=== PATIENT | female | born 1960 | race Caucasian/White ===

== ENCOUNTER 2020-12-12 07:40 | Observation (INO) ==
--- NOTE | 2020-12-10 08:55 | Anesthesiology Consultation ---
Date of Service December 10, 2020 Assessment & Plan (1) Encounter for pre-operative examination: COVID screening: Per assessment on 12/09: Travel screen negative, no known COVID- 19 positive contacts or current COVID-19 related symptoms. Patient vaccinated. Preop COVID test 12/09/20 was negative ([place]). Chart Review Chart Review: Acceptable Risk for Surgery and Patient NOT seen in Pre Admission Testing History Surgery Operation Date: 12/12/20 11:10 Proposed Procedures p Right Total Knee Arthroplasty - Guzman Chris DO Height/Weight Height: 5 ft 8 in Weight: 112.491 kg Allergies Allergy/AdvReac Type Severity Reaction Status Date / Time levofloxacin [From Levaquin] Allergy Severe Dyspnea Verified 12/10/20 08:55 sulfamethoxazole AdvReac Mild Headache Verified 12/10/20 08:55 [From Bactrim] trimethoprim [From Bactrim] AdvReac Mild Headache Verified 12/10/20 08:55 Medications Home Medications Medication Instructions Recorded Confirmed Last Taken lisinopril 10 mg tablet 10 mg PO QAM 12/09/20 12/09/20 Unknown Past Medical History Medical History Hx of renal calculi Hypertension Osteoarthritis Past Family History Family History Other Diabetes Heart disease Past Surgical History Surgical History H/O arthroscopic knee surgery right H/O cataract removal with insertion of prosthetic lens R/L H/O hernia repair left inguinal H/O partial nephrectomy partial of left kidney (r/t "stuck" kidney stone/sepsis) several years ago, no residual renal issues per pt H/O: hysterectomy History of History of cholecystectomy Hx of colonoscopy Social History Smoking Status: Never smoker Do You Dip or Chew Tobacco: No Hx Alcohol Use: No Hx Substance Use: No substance use type: does not use Lab Results Anesthesia Preop Results Results Anesthesia Widget: WBC 8.19 K/uL (4.8-10.8) 12/09/20 Hgb 15.0 g/dL (12.0-16.0) 12/09/20 Hct 43.7 % (37-47) 12/09/20 Plt 388 K/uL (130-400) 12/09/20 Na 139 mmol/L (136-145) 12/09/20 K 3.9 mmol/L (3.5-5.1) 12/09/20 Cl 108 mmol/L (98-107) H 12/09/20 CO2 28 mmol/L (21-32) 12/09/20 BUN 19 mg/dl (7-18) H 12/09/20 Creat 0.57 mg/dl (0.6-1.2) L 12/09/20 Glucose Level 83 mg/dl (70-99) 12/09/20 PT 9.5 Seconds (9.0-12.0) 12/09/20 PTT 25.2 Seconds (21.0-31.0) 12/09/20 INR 0.9 (0.9-1.1) 12/09/20 Blood Type A Positive 12/09/20 Antibody Screen NEGATIVE 12/09/20 Testing Electrocardiogram Date: 12/09/20 Findings: + NSR @ (81) Chest X-Ray Date: 12/09/20 Findings: + NAD
--- NOTE | 2020-12-11 16:07 | History & Physical Report ---
Date of Service December 11, 2020 Assessment & Plan (1) Osteoarthritis of right knee: We will proceed with a right total knee arthroplasty. Postoperatively she will be started on aspirin for DVT prophylaxis and kept overnight in the hospital for postoperative medical management. She plans to use home health upon discharge. History of Present Illness Chief Complaint: Osteoarthritis of the right knee. Primary Care Provider: NO PCP Angle is a pleasant 60-year-old female who has been dealing with chronic worsening right knee pain. X-rays and clinical examination have been diagnostic for advanced osteoarthritis of the right knee. After failing conservative treatment, she has elected to proceed with a right total knee arthroplasty.. Allergies Allergy/AdvReac Type Severity Reaction Status Date / Time levofloxacin [From Levaquin] Allergy Severe Dyspnea Verified 12/10/20 08:55 sulfamethoxazole AdvReac Mild Headache Verified 12/10/20 08:55 [From Bactrim] trimethoprim [From Bactrim] AdvReac Mild Headache Verified 12/10/20 08:55 Home Medications Medication Instructions Recorded Confirmed Type lisinopril 10 mg tablet 10 mg PO QAM 12/09/20 12/09/20 History Past Med/Surg History Medical History Hx of renal calculi Hypertension Osteoarthritis Surgical History H/O arthroscopic knee surgery right H/O cataract removal with insertion of prosthetic lens R/L H/O hernia repair left inguinal H/O partial nephrectomy partial of left kidney (r/t "stuck" kidney stone/sepsis) several years ago, no residual renal issues per pt H/O: hysterectomy History of History of cholecystectomy Hx of colonoscopy Family History Other Diabetes Heart disease Social History Smoking Status: Never smoker Second Hand Exposure: No; Hx Alcohol Use: No Hx Substance Use: No Preferred Language: Nicaraguan Communication Ability: Effective Ore Roaster Required: No Beliefs That Will Affect Care: None Current Living Situation: Family Feels Safe at Home: Yes Review of Systems All systems reviewed & are unremarkable except as noted in HPI & below. Physical Exam On physical examination of the right knee, she has a slight varus deformity. She has good motion of 0 to 120 degrees. She has no instability. She has pain over the distal medial femoral condyle and over the medial joint line.. Constitutional WD/WN, vitals as above Eyes PERRL, conjunctivae normal, anicteric sclerae ENMT external ear and nose normal, oropharynx normal Neck trachea midline, no thyromegaly Respiratory normal respiratory effort Cardiovascular RRR, no murmur, no edema Gastrointestinal (Abdomen) normal bowel sounds, soft, nontender, no hepatosplenomegaly Psychiatric A+Ox3, euthymic affect Results & Data Results & Data Laboratory Results . Diagnostic Findings X-rays of the right knee do show advanced osteoarthritis with joint space narrowing, osteophyte formation, and issh-au-ntat articulation. PG Care Time/CCT Total # of Minutes Spent Total Time Spent with Patient: Total time spent is greater than 50% in coordination of care (as documented) at patient's floor/unit and/or counseling patient: Coding Level of Care Code None Diagnoses Osteoarthritis of right knee M17.11
[~2020-12-12 07:40] MED LIST: ACETAMINOPHEN 500 MG TAB PO SCH; BUPIVACAINE 0.25% 30 ML VIAL ONE; BUPIVACAINE 0.5 % 5 MG/1 ML PF 10ML VIAL ONE; EPINEPHrine INJ 1 MG/ML AMP ONE; FAMOTIDINE 20 MG TAB PO SCH; GABAPENTIN 600 MG DOSE PO SCH; LR 500ML BOLUS, THEN 15ML/HR IV SCH; LR 60ML/HR IV SCH; ROPIVACAINE 0.5% HCL/PF 150 MG, BUPIVACAINE 0.75% MPF 20 ML, EPINEPHrine 30MG/30ML (OR ... INFIL SCH; TRANEXAMIC ACID 1,000 MG **IV Intra-op IV SCH; TRANEXAMIC ACID 1,000 MG **IV Pre-op IV SCH; ceFAZolin 2000MG 2,000 MG/15 ML SYR IV SCH; dexAMETHasone 4 MG TAB PO SCH
[2020-12-12] MEDS ORDERED: MIDAZOLAM HCL 1 MG/ML 2ML VIAL ONE (10:31)
--- NOTE | 2020-12-12 11:09 | History & Physical Bridge Note ---
Date of Service December 12, 2020 History & Physical Bridge Note I have examined the patient, reviewed the History & Physical and in the interval since the performance of the History & Physical I have noted the following changes of clinical significance: no changes noted
[2020-12-12] MEDS ORDERED: ORTHO JOINT ANESTHETIC ONE (11:44)
[2020-12-12] MEDS ORDERED: PROPOFOL IV EMULSION 10 MG/ML 20 ML VIAL IV ONE (13:10)
[2020-12-12] MEDS ORDERED: ONDANSETRON INJ 2 MG/ML 2 ML VIAL ONE (13:10)
[2020-12-12] MEDS ORDERED: LIDOCAINE 2% 2 ML VIAL/AMP(20MG/ML) INFIL ONE (13:10)
--- NOTE | 2020-12-12 13:43 | Operative Report ---
PG Post Operative Report Pre & Post Diagnosis Operation Date: 12/12/20 10:20 Pre-Op Diagnosis: Right Knee Degenerative Joint Disease Post-Op Diagnosis: Right Knee Degenerative Joint Disease I identified the patient and participated in the time-out.: Yes Procedure Operation Date: 12/12/20 10:20 Actual Procedures p Right Total Knee Arthroplasty, Cemented(Right) - Guzman Chris DO Surgeon Guzman Chris DO Pathologist Guzman Keene PAC Estimated Blood Loss 10 Findings Consistent with Post-Op Diagnosis Specimens Right femoral and tibial bone Complications none Disposition Disposition: Recovery Room Indications Angle is a pleasant 60-year-old female who is been dealing with chronic increasing right knee pain. She has a history of a right knee arthroscopy in March 2020. She has been having pain since. X-rays show progressive arthritis of the right knee. After failing conservative treatment, she has elected proceed with a right total knee arthroplasty. Description of Procedure Implants used: I used a Bertin Persona total knee arthroplasty system with a size 8 standard femur, E tibia, 29 patella, and a size 11 medial congruent polyethylene bearing. All components were cemented in place with Simplex HV cement. Angle arrived [facility] for the above procedure. She was seen in the preoperative holding area and the operative extremity was identified and signed. She was given a preoperative antibiotic, TXA, a spinal anesthetic and an adductor nerve block. She was taken back to the operating room and laid on the table in supine position. She was given basic sedation. The operative knee was then prepped and draped in sterile fashion. A timeout was done, and the patient and the operative extremity was properly identified. A midline incision was made directly over the patella. Dissection was taken down to the extensor mechanism. A subvastus arthrotomy was used. The medial retinaculum was released and the fat pad was mostly excised. The knee was flexed and the ACL, PCL, and meniscus were removed. A drill was sent down the center of the femoral canal followed by an intramedullary jeremias. Off that jeremias a distal femoral cutting block was placed. 9 mm was resected off the distal femur at 5 of valgus. A posterior referencing AP sizing guide was then placed on the distal femur. The femur measured to be a size 8. 2 drill holes were placed in 3 of external rotation. A 4-in-1 cutting block was then impacted into place. Anterior, posterior, and chamfer cuts were then made. The proximal tibia was then exposed. An external tibial alignment guide was placed. A tibial cut guide was then anchored in place and the proximal tibia was then resected. The posterior aspect of the knee was then opened up and any additional meniscus fragments and osteophytes were removed. The tibia measured to be a size E. The tibial plate was then placed in the appropriate rotation and the tibia was drilled and punched. Trial components were then placed. I used a size 11 medial congruent polyethylene insert. The knee was brought through a full range of motion and felt to be stable. The peg holes for the femoral component were then drilled. The patella was then everted and 9 mm was resected off the posterior aspect of the patella. The patella measured to be a size 29. 3 peg holes were then drilled. A trial patella was placed. The knee was once again brought through a full range of motion and felt to be stable. Trial components were then removed. The surrounding soft tissues were injected with 100 cc of an orthopedic pain control cocktail. All components were then cemented into place with Simplex HV cement. The final polyethylene insert was then snapped into place. Once cement was dry the tourniquet was deflated. Hem ostasis was obtained. A dilute betadyne lavage was then done for 3 minutes. The joint was then irrigated with normal saline solution. The subvastus arthrotomy was then closed with #1 Vicryl suture. The skin was closed with 2-0 Vicryl, 3-0V lock suture, and pee. A soft compressive dressing was placed. She was then transferred to a hospital bed and taken to the postanesthesia care unit in stable condition. She tolerated the procedure well. Guzman Keene PA-C, was present for the entire procedure. He was critical for patient positioning, prepping, draping, retraction exposure, wound closure and application of sterile dressing. I attest to the content of the Intraoperative Record and any orders documented therein. Any exceptions are noted below.
--- NOTE | 2020-12-12 14:13 | XRay Report ---
RIGHT KNEE 2 VIEWS History: Right total knee arthroplasty. Degenerative arthritis. Postop. FINDINGS: The patient is status post a right total knee arthroplasty. The hardware is intact. No frac ture or dislocation. Skin pee are in place. IMPRESSION: Right total knee arthroplasty. No evidence for hardware complication. ACT 112: Negative or not required by law. Electronically signed by: Cory Cespedes M.D. 12/12/2020 2:12 PM
[2020-12-12] MEDS ORDERED: HYDROmorphone INJ 0.5 MG/0.5 ML SYR IV PRN (15:02)
[2020-12-12] MEDS ORDERED: SODIUM CHLORIDE 0.9% 1000ML 1,000 ML IV SCH (15:02)
[2020-12-12] MEDS ORDERED: MAGNESIUM HYDROXIDE SUSP 30 ML UDC PO PRN (15:02)
[2020-12-12] MEDS ORDERED: METOCLOPRAMIDE HCL INJ 5 MG/ML 2 ML VIAL IV PRN (15:02)
[2020-12-12] MEDS ORDERED: ONDANSETRON INJ 2 MG/ML 2 ML VIAL IV PRN (15:02)
[2020-12-12] MEDS ORDERED: bisacodyL 10 MG SUPP PR PRN (15:02)
[2020-12-12] MEDS ORDERED: NALOXONE HCL 0.4 MG/1 ML VIAL/CARP IV PRN (15:02)
--- NOTE | 2020-12-12 15:12 | Anesthesiology Progress Note ---
Date of Service December 12, 2020 Anesthesia Post Procedure Vital Signs Vital Signs: Temp Pulse Pulse Resp BP Pulse Ox 12/12/20 14:40 36.7 C 67 19 129/72 96 12/12/20 14:30 36.7 C 68 20 131/76 94 12/12/20 14:20 36.7 C 71 20 128/85 95 12/12/20 14:10 65 16 124/76 95 12/12/20 14:00 70 19 124/64 96 12/12/20 13:50 68 14 128/70 93 12/12/20 13:43 37.3 C 87 16 138/78 94 12/12/20 08:59 36.5 C 62 18 152/84 H 98 Pain Intensity Right Knee: Pain Intensity: 4 Transfer of Care Handoff Completed per policy Notes Mental Status: alert / awake / arousable Patient Amnestic to Procedure: Yes Nausea / Vomiting: adequately controlled Pain: adequately controlled Airway Patency, RR, SpO2: stable & adequate BP & HR: stable & adequate Hydration State: stable & adequate Neuraxial Anesthesia: was administered and sensory block is resolving Anesthetic Complications: no major complications apparent
[2020-12-12] MEDS: ACETAMINOPHEN 500 MG TAB PO SCH ×2 (17:10→21:51)
[2020-12-12] MEDS: KETOROLAC 30 MG/ML VIAL IV SCH ×2 (17:10→21:51)
[2020-12-12] MEDS: ceFAZolin 2000MG 2,000 MG/15 ML SYR IV SCH (20:05)
[2020-12-12] MEDS ORDERED: SENNA 8.6 MG TAB PO SCH (21:00)
[2020-12-12] MEDS: DOCUSATE SODIUM 100 MG CAP PO SCH (21:51)
[2020-12-12] MEDS: ASPIRIN 81 MG ECTAB PO SCH (22:05)
[2020-12-13 03:56] VITALS: BP 129/77; PULSE 65; TEMP 98.2; O2SAT 96
[2020-12-13] MEDS: ceFAZolin 2000MG 2,000 MG/15 ML SYR IV SCH (05:11)
[2020-12-13] MEDS: ACETAMINOPHEN 500 MG TAB PO SCH (05:11)
[2020-12-13] MEDS: KETOROLAC 30 MG/ML VIAL IV SCH ×2 (05:11→09:53)
--- NOTE | 2020-12-13 07:16 | Orthopedic Progress Note ---
Date of Service December 13, 2020 Assessment & Plan (1) Status post right knee replacement: Overall she is doing very well. She denies any much pain in the right knee. She is on aspirin for DVT prophylaxis. She will be seen by physical therapy later today for ambulation and range of motion exercises. She can be discharged home later today. She will follow-up with orthopedics in 2 weeks. Jennifer Barbour was seen and examined at bedside this morning. Overall she is doing very well. She is not having much pain in the right knee. She has been ambulating to the bathroom. She has no complaints.. Review of Systems All systems reviewed & are unremarkable except as noted in HPI & below. Physical Exam On physical examination of the right knee, the dressing is clean and dry. Her leg is out in full extension. She has active dorsiflexion plantarflexion of her right ankle. Sensation is intact throughout.. Results & Data Results & Data Laboratory Results . Diagnostic Findings Postoperative x-rays of the right knee show the prosthesis to be in anatomic alignment without any evidence of fracture, dislocation, or loosening. PG Care Time/CCT Total # of Minutes Spent Total Time Spent with Patient: Total time spent is greater than 50% in coordination of care (as documented) at patient's floor/unit and/or counseling patient: Coding Level of Care Code 13827 Post Operative Follow-Up Diagnoses Status post right knee replacement Z96.651
--- NOTE | 2020-12-13 07:17 | Discharge Summary ---
Date of Service December 13, 2020 Admission HPI (Per Admitting) Angle is a pleasant 60-year-old female who has been dealing with chronic worsening right knee pain. X-rays and clinical examination have been diagnostic for advanced osteoarthritis of the right knee. After failing conservative treatment, she has elected to proceed with a right total knee arthroplasty.. Admission Exam (Per Admitting) On physical examination of the right knee, she has a slight varus deformity. She has good motion of 0 to 120 degrees. She has no instability. She has pain over the distal medial femoral condyle and over the medial joint line.. Principal Diagnosis Same as "Discharge Diagnosis" noted below under Discharge Instructions. Discharge Exam On physical examination of the right knee, the dressing is clean and dry. Her leg is out in full extension. She has active dorsiflexion plantarflexion of her right ankle. Sensation is intact throughout.. Discharge Data Procedures Performed Operation Date: 12/12/20 10:20 Actual Procedures p Right Total Knee Arthroplasty, Cemented(Right) - Guzman Chris DO Ordered Studies 12/12/20 05:00 US - OR guided needle placemen Routine Hospital Course (1) Status post right knee replacement: On December 12, 2020 Angle arrived at [facility] and underwent a right knee replaced without complication. She had a spinal anesthetic. Postoperatively she was started on aspirin for DVT prophylaxis and transferred to the general orthopedic floors. Her hospital course was uneventful. On postop day #1 her vital signs were stable and her pain was well controlled. She was able to participate well with physical therapy doing ambulation and range of motion exercises. She was then discharged home. She will follow-up with orthopedics in 2 weeks. PG Care Time/CCT Total # of Minutes Spent Total Time Spent with Patient: Total time spent is greater than 50% in coordination of care (as documented) at patient's floor/unit and/or counseling patient: Discharge Plan Discharge Items Patient Disposition: Home - Home Health Services Reason For Visit: Right Knee Degenerative Joint Disease Discharge Diagnosis: Right knee replacement Activity: As commented below Non-emergency contact: Surgeon Call non-emergency contact if: your wound has increased redness and your wound has increased drainage Follow-up/Referrals: PCP,NO [Primary Care Provider] - Diet: Regular Addtl Attending Provider Instructions: Activity and Therapy Recommendations: * If you are using [facility] then therapy will be provided at your home until they feel you have accomplished all of your goals. * If you are using [facility] then Physical Therapy will be provided until they feel you are ready to start Outpatient Physical Therapy. * If you are not using home therapy then Outpatient Physical Therapy should start about 3-5 days from your day of surgery. Therapy will last about 6-10 weeks * It is important not to put a pillow under your knee when you are relaxing or sleeping. It is just as important to make sure you are getting your knee perfectly straight as it is to regain your knee bend. * You were shown a series of exercises in the hospital. Do these exercises three times each day including the exercises you were shown in physical therapy. * Get up and walk several times each day. For the first four weeks, try not to stand or walk for more than one hour at a time. If you do stand or walk for more than one hour, you will not hurt anything, but your leg will likely swell. * As you feel comfortable, you may change from the walker or crutches to a cane and then to independent walking. Medications: * Narcotic You will likely be sent home from the hospital with a prescription for the narcotic pain medication that worked best throughout your stay. * Aspirin Most patients will be required to take Aspirin 81mg twice a day for 6 weeks after surgery. This is obtained [id number] and a prescription is not necessary. * Other medications may be prescribed for specific circumstances. If you have any questions, please call the office at . * Resume previous home medications unless otherwise instructed TEDs/Elastic Stockings: The white elastic stockings help limit swelling and prevent blood clots from forming in your legs.~ The more you wear them, the more they work. Wear them for six weeks. Dressing Care: The dressing can be changed after physical therapy on postop day #1. Daily dry dressing changes for a few days, especially if the incision is still draining some. If the incision is not draining then you may leave the pee open to air. If there is a little bit of drainage or if the pee are getting stuck on your clothing then cover the incision with a dry dressing. The pee will be removed at your 2 week follow-up appointment. Showering: You may shower 5 days from the day of surgery as long as the incision is no longer draining. You may shower with the pee exposed. Let soapy water run over the pee and pat them dry. Do not scrub or soak the incision. Things To Watch For: * Drainage from the incision site that occurs more than one week after your surgery. * Increased redness at the incision site. * Fever above 102 degrees Fahrenheit. * Unusual chest pain or shortness of breath. * Call [facility] at with any of the above problems Follow-Up Visit: Follow-up with Dr. Chris's PA (Guzman Keene) 2-3 weeks after your day of surgery. He will remove your pee and answer any questions. If you have any additional questions or concerns, Dr Chris is usually in the office at the same time and will be available An appointment was probably scheduled when you signed-up for surgery in the office. If you have any questions call Office Instructions: More detailed instructions as well as Frequently Asked Questions were provided in a folder by our office when you signed-up for surgery. Please review these instructions when you get home. If you have any further questions or concerns, please feel free to call the office at [phone] Pending Studies at Discharge: No Stand-Alone Forms: My [facility] Medications and DC Order Prescriptions: New oxycodone 5 mg Tablet 5 mg PO Q4H PRN (Reason: pain) Qty: 60 RF: 0 aspirin 81 mg Tablet,Delayed Release (Dr/Ec) 81 mg PO BID 42 Days Qty: 84 RF: 0 Continued lisinopril 10 mg tablet 10 mg PO QAM RF: 0 Discharge Orders: Discharge Order (Routine); Ordered 12/13/20 Ordered By: Guzman Chris Admission Data Admit Date/Time: 12/12/20 13:44 Attending Provider: Guzman Chris Admit Provider: Guzman Chris Primary Care Provider: [id number]
[2020-12-13] MEDS: oxyCODONE HCL IR 5 MG TAB (IMMEDIATE RELEASE) PO PRN ×2 (07:50→13:19)
[2020-12-13] MEDS: DOCUSATE SODIUM 100 MG CAP PO SCH (07:54)
[2020-12-13] MEDS: ASPIRIN 81 MG ECTAB PO SCH (07:54)
[2020-12-13] MEDS ORDERED: dexAMETHasone 4 MG TAB PO SCH (08:00)
[2020-12-13] MEDS ORDERED: lisinopril 10 MG TAB PO SCH (09:00)
[2020-12-13] MEDS ORDERED: MULTIVITAMIN TAB PO SCH (09:00)
== END 2020-12-13 14:04 | disposition home health service (06) ==
LOC: PACUINP 07:40 → ASU 07:40 → 3E 16:32

== ENCOUNTER 2022-07-02 07:18 | Observation (INO) ==
--- NOTE | 2022-06-07 09:38 | PAT Medication Instructions ---
Medication Instructions Date of Service June 07, 2022 Home Medications Medication Instructions Recorded amoxicillin 500 mg tablet 2,000 mg PO ONCE PRN prophylaxis 06/05/21 #4 tabs lisinopril 10 mg tablet 10 mg PO QAM amoxicillin 500 mg tablet 2,000 mg PO ONCE PRN prophylaxis bupropion HCl 300 mg 24 hr tablet, extended release 300 mg PO QAM multivitamin 1 tab PO QAM topiramate 100 mg tablet 100 mg PO BID Continue as directed amoxicillin 500 mg tablet 2,000 mg PO ONCE PRN prophylaxis (if needed) DO NOT take the morning of surgery lisinopril 10 mg tablet 10 mg PO QAM multivitamin 1 tab PO QAM Take morning of surgery With a small sip of water, OTHERWISE NOTHING TO EAT OR DRINK AFTER MIDNIGHT: bupropion HCl 300 mg 24 hr tablet, extended release 300 mg PO QAM topiramate 100 mg tablet 100 mg PO BID Take evening before surgery topiramate 100 mg tablet 100 mg PO BID Other Notes If you have any questions please call us at [phone] or [phone] or or [phone]
--- NOTE | 2022-06-15 13:15 | Anesthesiology Consultation ---
Date of Service June 15, 2022 Assessment & Plan (1) Encounter for pre-operative examination: - COVID screening: Per assessment on 06/15: No known COVID-19 positive contacts or current COVID-19 related symptoms. Travel screen negative. Patient vaccinated. At surgeon discretion if preop Covid testing being done. - Outpatient joint assessment: Pt currently scheduled for inpatient pathway. If surgeon requests review for outpatient joint pathway, patient is an acceptable candidate for outpatient joint program from anesthesia standpoint pending surgeon's office assessment that patient is motivated, has good support and completes Same Day Joint Program preop requirements. - S/P Right TKA (12/12/20): SAB at L3-4 + PNB at [facility]. No issues noted per post- op anesthesia progress note. - Hypokalemia: Mildly low potassium at 3.4 on preop labs 06/15/22. At anesthesiologist discretion AM DOS if recheck level needed from their perspective. Chart Review Chart Review: Acceptable Risk for Surgery and Patient seen in Pre Admission Testing Teaching & Discussion Pre-Anesthesia Teaching/Discussion Notes: Instructed NPO after midnight before surgery,except medications with 15 cc of water. Medication instructions provided according to the PAT guidelines. History Surgery Operation Date: 07/02/22 10:30 Proposed Procedures p Left Total Knee Arthroplasty - Guzman Chris, DO Height/Weight Height: 5 ft 8 in Weight: 97.1 kg Allergies Allergy/AdvReac Type Severity Reaction Status Date / Time levofloxacin [From Levaquin] Allergy Severe Dyspnea Verified 06/03/22 07:35 sulfamethoxazole AdvReac Mild Headache Verified 06/03/22 07:35 [From Bactrim] trimethoprim [From Bactrim] AdvReac Mild Headache Verified 06/03/22 07:35 Medications Home Medications Medication Instructions Recorded Confirmed Last Taken lisinopril 10 mg tablet 10 mg PO QAM 12/09/20 06/03/22 12/11/20 06:00 amoxicillin 500 mg tablet 2,000 mg PO ONCE PRN prophylaxis 06/05/21 06/03/22 Unknown #4 tabs bupropion HCl 300 mg 24 hr tablet, 300 mg PO QAM 06/03/22 06/03/22 Unknown extended release multivitamin 1 tab PO QAM 06/03/22 06/03/22 Unknown topiramate 100 mg tablet 100 mg PO BID 06/03/22 06/03/22 Unknown Past Medical History Medical History Hx of renal calculi Hypertension Osteoarthritis Exercise / Class Metabolic Activity II 4-5 Yardwork/Stairs/Walk up hill Past Family History Family History Other Diabetes Heart disease Past Surgical History Surgical History H/O arthroscopic knee surgery right H/O cataract removal with insertion of prosthetic lens R/L H/O hernia repair left inguinal H/O partial nephrectomy partial of left kidney (r/t "stuck" kidney stone/sepsis) several years ago, no residual renal issues per pt H/O: hysterectomy History of History of cholecystectomy History of total right knee replacement (TKR) Right TKA (12/12/20): SAB at L3-4 + PNB at [facility]. No issues noted per post-op anesthesia progress note. Hx of colonoscopy Past Anesthesia History No Hx of Anesthesia Complications and No Family Hx of Anesthesia Complications History of PONV No Hx of PONV and No Hx of Motion Sickness Social History Smoking Status: Never smoker Do You Dip or Chew Tobacco: No Hx Alcohol Use: Yes alcohol intake frequency: holidays/special occasions only Hx Substance Use: No substance use type: does not use Review of Systems Patient denies chest pain, shortness of breath, dyspnea on exertion, fever, chills, cough, wheezing, palpitations. Physical Exam Vital Signs VITALS BP 115/75 P 73 TEMP 97.9 SP02 98%RA RESP 18 PHYSICAL Full cervical extension range of motion. Full TMJ range of motion. TMD 3 finger breaths Mallampati Score 2 Dentition: intact Lungs: clear throughout to auscultation Cardiac: regular rate and rhythm, no murmurs noted Spine: normal Carotid arteries: negative bruit Extremities: no edema Lab Results Anesthesia Preop Results Results Anesthesia Widget: WBC 8.22 K/ul (4.8-10.8) 06/15/22 Hgb 13.4 g/dl (12.0-16.0) 06/15/22 Hct 38.8 % (37.0-47.0) 06/15/22 Plt 329 K/uL (130-400) 06/15/22 Na 140 mmol/L (136-145) 06/15/22 K 3.4 mmol/L (3.5-5.1) L 06/15/22 Cl 109 mmol/L (98-107) H 06/15/22 CO2 25 mmol/L (21-32) 06/15/22 BUN 24 mg/dl (6-23) H 06/15/22 Creat 0.83 mg/dl (0.6-1.2) 06/15/22 Glucose Level 107 mg/dl (70-99(Fasting)) H 06/15/22 PT 10.4 Seconds (9.0-12.0) 06/15/22 PTT 25.5 Seconds (21.0-31.0) 06/15/22 INR 1.0 (0.9-1.1) 06/15/22 Blood Type A Positive 06/15/22 Antibody Screen NEGATIVE 06/15/22 Testing Electrocardiogram Date: 06/15/22 NSR at 75bpm. Chest X-Ray Date: 06/15/22 FINDINGS: PA and lateral chest radiographs are compared to study dated 12/09/2020. The cardiomediastinal silhouette is unremarkable. The lungs and pleural spaces are clear. There is no pneumothorax. The skeletal structures are osteopenic. The bony thorax appears intact. Cholecystectomy clips are seen in the right upper quadrant. IMPRESSION: No active disease in the chest. COVID-19 Risk Screen Screening Information COVID-19 Screen Date: 06/15/22 Exposure 21 Days Family/Household +COVID Last 21 Days: No Exposure 10 Days Any COVID Exposure Last 10 Days: No Symptoms Last 10 Days Experienced COVID Sx Last 10 Days: No + COVID 0-90 Days COVID + in Last 0-90 Days: No
[~2022-07-02 07:18] MED LIST changes: -BUPIVACAINE 0.25% 30 ML VIAL ONE; -EPINEPHrine INJ 1 MG/ML AMP ONE; +GABAPENTIN 300 MG CAP PO SCH; -GABAPENTIN 600 MG DOSE PO SCH; +LR 15ML/HR IV SCH; -LR 500ML BOLUS, THEN 15ML/HR IV SCH; +ORTHO JOINT MIX INFIL SCH; +ROPIVACAINE 0.5% 5 MG/ML 30 ML VIAL ONE; -ROPIVACAINE 0.5% HCL/PF 150 MG, BUPIVACAINE 0.75% MPF 20 ML, EPINEPHrine 30MG/30ML (OR ... INFIL SCH
--- NOTE | 2022-07-02 10:44 | History & Physical Bridge Note ---
Date of Service July 02, 2022 History & Physical Bridge Note I have examined the patient, reviewed the History & Physical and in the interval since the performance of the History & Physical I have noted the following changes of clinical significance: no changes noted
[2022-07-02] MEDS ORDERED: MIDAZOLAM HCL 1 MG/ML 2ML VIAL ONE (10:53)
[2022-07-02] MEDS ORDERED: ORTHO JOINT ANESTHETIC ONE (11:38)
[2022-07-02] MEDS ORDERED: PROPOFOL IV EMULSION 10 MG/ML 20 ML VIAL IV ONE ×2 (13:01→13:54)
[2022-07-02] MEDS ORDERED: LIDOCAINE 2% MPF LOCAL 5 ML VIAL INFIL ONE (13:01)
[2022-07-02] MEDS ORDERED: ONDANSETRON INJ 2 MG/ML 2 ML VIAL ONE (13:31)
--- NOTE | 2022-07-02 13:38 | Operative Report ---
PG Post Operative Report Pre & Post Diagnosis Operation Date: 07/02/22 11:40 Pre-Op Diagnosis: Degenerative Joint Disease Left Knee Post-Op Diagnosis: Degenerative Joint Disease Left Knee I identified the patient and participated in the time-out.: Yes Procedure Operation Date: 07/02/22 11:40 Actual Procedures p Left Total Knee Arthroplasty(Left) - Guzman Chris DO Surgeon Guzman Chris DO Payroll Machine Operator Guzamn Keene PA-C Estimated Blood Loss 20 Findings Consistent with Post-Op Diagnosis Specimens Left femoral and tibial bone Description of Procedure Implants used: I used a Bertin Persona total knee arthroplasty system with a size 8 femur, D tibia, 28 oval patella, and a size 11 medial congruent polyethylene bearing. All components were cemented in place with Biomet cement. Angle arrived [facility] for the above procedure. She was seen in the preoperative holding area and the operative extremity was identified and signed. She was given a preoperative antibiotic, TXA, a spinal anesthetic and an adductor nerve block. She was taken back to the operating room and laid on the table in supine position. She was given basic sedation. The operative knee was then prepped and draped in sterile fashion. A timeout was done, and the patient and the operative extremity was properly identified. A midline incision was made directly over the patella. Dissection was taken down to the extensor mechanism. A midvastus arthrotomy was used. The medial retinaculum was released and the fat pad was mostly excised. The knee was flexed and the ACL, PCL, and meniscus were removed. A drill was sent down the center of the femoral canal followed by an intramedullary jeremias. Off that jeremias a distal femoral cutting block was placed. 9 mm was resected off the distal femur at 5 of valgus. A posterior referencing AP sizing guide was then placed on the distal femur. The femur measured to be a size 8. 2 drill holes were placed in 3 of external rotation. A 4-in-1 cutting block was then impacted into place. Anterior, posterior, and chamfer cuts were then made. The proximal tibia was then exposed. An external tibial alignment guide was placed. A tibial cut guide was then anchored in place and the proximal tibia was then resected. The posterior aspect of the knee was then opened up and any additional meniscus fragments and osteophytes were removed. The tibia measured to be a size D. The tibial plate was then placed in the appropriate rotation and the tibia was drilled and punched. Trial components were then placed. I used a size 11 medial congruent polyethylene insert. The knee was brought through a full range of motion and felt to be stable. The peg holes for the femoral component were then drilled. The patella was then everted and 9 mm was resected off the posterior aspect of the patella. The patella measured to be a size 28 oval. 3 peg holes were then drilled. A trial patella was placed. The knee was once again brought through a full range of motion and felt to be stable. Trial components were then removed. The surrounding soft tissues were injected with 100 cc of an orthopedic pain control cocktail. All components were then cemented into place with Biomet cement. The final polyethylene insert was then snapped into place. Once cement was dry the tourniquet was deflated. Hemostasis was obtained. A dilute betadyne lavage was then done for 3 minutes. The joint was then irrigated with normal saline solution. The midvastus arthrotomy was then closed with #1 Vicryl suture. The skin was closed with 2-0 Vicryl, 3-0V lock suture, and pee. A soft compressive dressing was placed. She was then transferred to a hospital bed and taken to the postanesthesia care unit in stable condition. She tolerated the procedure well. Guzman Keene PA-C, was present for the entire procedure. He was critical for patient positioning, prepping, draping, retraction exposure, wound closure and application of sterile dressing. I attest to the content of the Intraoperative Record and any orders documented therein. Any exceptions are noted below.
[2022-07-02] MEDS ORDERED: fentaNYL citrate 100 MCG/2 ML VIAL IV PRN (13:58)
[2022-07-02] MEDS ORDERED: ePHEDrine sulfate 50 MG/ML AMP IV PRN (13:58)
[2022-07-02] MEDS ORDERED: ATROPINE SULFATE 0.1 MG/ML 10ML SYR IV PRN (13:58)
--- NOTE | 2022-07-02 14:48 | Anesthesiology Progress Note ---
Date of Service July 02, 2022 Anesthesia Post Procedure Vital Signs Vital Signs: Temp Pulse Pulse Resp BP Pulse Ox O2 Del Method 07/02/22 14:30 53 L 13 101/72 94 Oxymask 07/02/22 14:20 59 L 17 120/76 96 Oxymask 07/02/22 14:10 50 L 16 123/70 99 Oxymask 07/02/22 14:04 36.3 C L 64 20 124/73 96 Oxymask 07/02/22 09:55 36.6 C 56 L 20 129/75 95 Room Air O2 Flow Rate 07/02/22 14:30 2 07/02/22 14:20 2 07/02/22 14:10 3 07/02/22 14:04 5 07/02/22 09:55 Transfer of Care Handoff Completed per policy Notes Mental Status: alert / awake / arousable and participated in evaluation Patient Amnestic to Procedure: Yes Nausea / Vomiting: adequately controlled Pain: adequately controlled Airway Patency, RR, SpO2: stable & adequate BP & HR: stable & adequate Hydration State: stable & adequate Neuraxial Anesthesia: was administered and sensory block is resolving Anesthetic Complications: no major complications apparent and Pt Satisfied with anesthetic care
--- NOTE | 2022-07-02 14:55 | XRay Report ---
XR knee LT 1 or 2V routine CLINICAL HISTORY: post op Left TKA TECHNIQUE: 1 views of the left knee were obtained. Comparison: Comparison is made to knee radiographs 01/27/2022 FINDINGS: Patient is status post total knee arthroplasty with expected postsurgical changes including soft tiss ue swelling and subcutaneous emphysema. No periarticular lucency or hardware fracture is seen. IMPRESSION: No evidence of acute osseous injury. ACT 112: Negative or not required by law. Electronically signed by: Fazal Lou M.D. 07/02/2022 2:54 PM
[2022-07-02] MEDS ORDERED: METOCLOPRAMIDE HCL INJ 5 MG/ML 2 ML VIAL IV PRN (16:09)
[2022-07-02] MEDS ORDERED: NALOXONE HCL 0.4 MG/1 ML VIAL/CARP IV PRN (16:09)
[2022-07-02] MEDS ORDERED: bisacodyL 10 MG SUPP PR PRN (16:09)
[2022-07-02] MEDS ORDERED: MAGNESIUM HYDROXIDE SUSP 30 ML UDC PO PRN (16:09)
[2022-07-02] MEDS ORDERED: HYDROmorphone INJ 0.5 MG/0.5 ML SYR IV PRN (16:09)
[2022-07-02] MEDS ORDERED: SODIUM CHLORIDE 0.9% 1000ML 1,000 ML IV SCH (16:09)
[2022-07-02] MEDS ORDERED: ONDANSETRON INJ 2 MG/ML 2 ML VIAL IV PRN (16:09)
[2022-07-02] MEDS: KETOROLAC 30 MG/ML VIAL IV SCH ×2 (18:24→23:38)
[2022-07-02] MEDS: TOPIRAMATE 100 MG TAB PO SCH (19:31)
[2022-07-02] MEDS: DOCUSATE SODIUM 100 MG CAP PO SCH (20:49)
[2022-07-02] MEDS: ASPIRIN 81 MG ECTAB PO SCH (20:49)
[2022-07-02] MEDS: ceFAZolin 2000MG 2,000 MG/15 ML SYR IV SCH (20:49)
[2022-07-02] MEDS: ACETAMINOPHEN 500 MG TAB PO SCH (20:50)
[2022-07-02] MEDS ORDERED: SENNA 8.6 MG TAB PO SCH (21:00)
[2022-07-03] MEDS: KETOROLAC 30 MG/ML VIAL IV SCH (05:11)
[2022-07-03] MEDS: ceFAZolin 2000MG 2,000 MG/15 ML SYR IV SCH (05:12)
[2022-07-03] MEDS: ACETAMINOPHEN 500 MG TAB PO SCH (05:12)
[2022-07-03] MEDS: oxyCODONE HCL IR 5 MG TAB (IMMEDIATE RELEASE) PO PRN ×2 (06:12→10:25)
--- NOTE | 2022-07-03 06:55 | Orthopedic Progress Note ---
Date of Service July 03, 2022 Assessment & Plan (1) Status post left knee replacement: Overall she is doing fairly well. She is not having much pain in the left knee. She will be seen by physical therapy today for ambulation and range of motion exercises. She is on aspirin for DVT prophylaxis. She can be discharged home later today. She will follow-up with orthopedics in 2 weeks. Jennifer Barbour was seen and examined at bedside this morning. Overall she is doing very well. She is not having much pain in the left knee. She has been up and ambulating to the bathroom. She has no complaints.. Review of Systems All systems reviewed & are unremarkable except as noted in HPI & below. Physical Exam On physical examination of the left knee, the dressing is clean and dry. She is sitting with her knee flexed at 90 degrees. She has active dorsiflexion plantarflexion of the left ankle.. Results & Data Results & Data Laboratory Results . Diagnostic Findings Postoperative x-rays of the left knee show the prosthesis to be in anatomic alignment without any evidence of fracture, desiccation, or loosening.. PG Care Time/CCT Total # of Minutes Spent Total Time Spent with Patient: Total time spent is greater than 50% in coordination of care (as documented) at patient's floor/unit and/or counseling patient: Coding Level of Care Code 21311 Post Operative Follow-Up Diagnoses Status post left knee replacement Z96.652
--- NOTE | 2022-07-03 07:00 | Discharge Summary ---
Date of Service July 03, 2022 Principal Diagnosis Same as "Discharge Diagnosis" noted below under Discharge Instructions. Discharge Exam On physical examination of the left knee, the dressing is clean and dry. She is sitting with her knee flexed at 90 degrees. She has active dorsiflexion plantarflexion of the left ankle.. Discharge Data Procedures Performed Operation Date: 07/02/22 11:40 Actual Procedures p Left Total Knee Arthroplasty(Left) - Guzman Chris DO Ordered Studies 07/02/22 05:00 US - OR guided needle placemen Routine Hospital Course (1) Status post left knee replacement: On July 02, 2022 Roxi arrived at [facility] and underwent a left knee replacement without complication. She had a spinal anesthetic. Postoperatively she was started on aspirin for DVT prophylaxis and transferred to the general orthopedic floors. Her hospital course was uneventful. On postop day #1, her vital signs were stable and her pain was well controlled. She was able to participate well with physical therapy doing ambulation and range of motion exercises. She was then discharged home. She will follow-up with orthopedics in 2 weeks. PG Care Time/CCT Total # of Minutes Spent Total Time Spent with Patient: Total time spent is greater than 50% in coordination of care (as documented) at patient's floor/unit and/or counseling patient: Discharge Plan Discharge Items Patient Disposition: Home - Home Health Services Reason For Visit: DJD Left Knee Discharge Diagnosis: Left knee replacement Activity: Per Instructions section Non-emergency contact: Surgeon Call non-emergency contact if: your wound has increased redness and your wound has increased drainage Follow-up/Referrals: Alphonso Giraldo DO [Primary Care Provider] - Diet: Regular Addtl Attending Provider Instructions: Activity and Therapy Recommendations: * If you are using [facility] then therapy will be provided at your home until they feel you have accomplished all of your goals. * If you are using [facility] then Physical Therapy will be provided until they feel you are ready to start Outpatient Physical Therapy. * If you are not using home therapy then Outpatient Physical Therapy should start about 3-5 days from your day of surgery. Therapy will last about 6-10 weeks * It is important not to put a pillow under your knee when you are relaxing or sleeping. It is just as important to make sure you are getting your knee perfectly straight as it is to regain your knee bend. * You were shown a series of exercises in the hospital. Do these exercises three times each day including the exercises you were shown in physical therapy. * Get up and walk several times each day. For the first four weeks, try not to stand or walk for more than one hour at a time. If you do stand or walk for more than one hour, you will not hurt anything, but your leg will likely swe ll. * As you feel comfortable, you may change from the walker or crutches to a cane and then to independent walking. Medications: * Narcotic You will likely be sent home from the hospital with a prescription for the narcotic pain medication that worked best throughout your stay. * Aspirin Most patients will be required to take Aspirin 81mg twice a day for 6 weeks after surgery. This is obtained [id number] and a prescription is not necessary. * Other medications may be prescribed for specific circumstances. If you have any questions, please call the office at . * Resume previous home medications unless otherwise instructed TEDs/Elastic Stockings: The white elastic stockings help limit swelling and prevent blood clots from forming in your legs.~ The more you wear them, the more they work. Wear them for six weeks. Dressing Care: The dressing can be changed after physical therapy on postop day #1. Daily dry dressing changes for a few days, especially if the incision is still draining some. If the incision is not draining then you may leave the pee open to air. If there is a little bit of drainage or if the pee are getting stuck on your clothing then cover the incision with a dry dressing. The pee will be removed at your 2 week follow-up appointment. Showering: You may shower 5 days from the day of surgery as long as the incision is no longer draining. You may shower with the pee exposed. Let soapy water run over the pee and pat them dry. Do not scrub or soak the incision. Things To Watch For: * Drainage from the incision site that occurs more than one week after your surgery. * Increased redness at the incision site. * Fever above 102 degrees Fahrenheit. * Unusual chest pain or shortness of breath. * Call [facility] at with any of the above problems Follow-Up Visit: Follow-up with Dr. Chris's PA (Guzman Keene) 2-3 weeks after your day of surgery. He will remove your pee and answer any questions. If you have any additional questions or concerns, Dr Chris is usually in the office at the same time and will be available An appointment was probably scheduled when you signed-up for surgery in the office. If you have any questions call Office Instructions: More detailed instructions as well as Frequently Asked Questions were provided i n a folder by our office when you signed-up for surgery. Please review these instructions when you get home. If you have any further questions or concerns, please feel free to call the office at [phone] Pending Studies at Discharge: No Stand-Alone Forms: [facility] Medications and DC Order Prescriptions: New aspirin 81 mg Tablet,Delayed Release (Dr/Ec) 81 mg PO BID 42 Days Qty: 84 0RF oxycodone-acetaminophen 5-325 mg tablet 1 tab PO Q6H PRN (Reason: pain) Qty: 30 0RF Continued amoxicillin 500 mg tablet 2,000 mg PO ONCE PRN (Reason: prophylaxis) Qty: 4 2RF Rx Instructions: ONE HOUR PRIOR TO DENTAL PROCEDURE lisinopril 10 mg tablet 10 mg PO QAM multivitamin Tablet 1 tab PO QAM topiramate 100 mg tablet 100 mg PO BID Rx Instructions: will stop beginning of jun bupropion HCl 300 mg tablet extended release 24 hr 300 mg PO QAM Rx Instructions: will stop begininning jun Admission Data Admit Date/Time: 07/02/22 14:08 Attending Provider: Guzman Chris Admit Provider: Guzman Chris Primary Care Provider: Alphonso Giraldo
[2022-07-03] MEDS ORDERED: dexAMETHasone 4 MG TAB PO SCH (08:00)
[2022-07-03] MEDS: DOCUSATE SODIUM 100 MG CAP PO SCH (08:48)
[2022-07-03] MEDS: ASPIRIN 81 MG ECTAB PO SCH (08:49)
[2022-07-03] MEDS: TOPIRAMATE 100 MG TAB PO SCH (08:49)
[2022-07-03] MEDS ORDERED: buPROPion XL 300 MG TABCR PO SCH (09:00)
[2022-07-03] MEDS ORDERED: lisinopril 10 MG TAB PO SCH (09:00)
[2022-07-03] MEDS ORDERED: MULTIVITAMIN TAB PO SCH (09:00)
== END 2022-07-03 10:34 | disposition home health service (06) ==
LOC: ASU 07:18 → 3N 07:18